=== PATIENT | male | born 1950 | race Caucasian/White ===

== ENCOUNTER → 2017-11-27 | Outpatient (CLI) | payer OTHER ==
[~2017-11-27] MED LIST: GADOBUTROL 10 ML VIAL IVP ONE
== END ==
LOC: FIMAGING 16:19
PROVIDERS: ATTEND Physician Assistant
DX: K86.9 Disease of pancreas, unspecified (principal)
CPT/HCPCS: 74183; A9585

== ENCOUNTER 2017-11-29 19:23 | Emergency (ER) | payer OTHER ==
[2017-11-29] MEDS ORDERED: NS 1,000 ML IV ONE (19:44)
--- NOTE | 2017-11-29 19:45 | EDPHY ---
H & P Time Seen by Provider: 11/29/17 19:43 HPI/ROS: Chief complaint. Abdominal pain HPI. 67-year-old male presents emergency department with abdominal pain. Patient has a recent diagnosis pancreatic cancer that would presented about week and half ago is painless jaundice. Patient had an MRI of his abdomen November 27 which showed a mass on the pancreas head is causing biliary obstruction. He had an ERCP today and gallbladder stent and then he has had worsening abdominal pain. Pain is in the epigastrium is described as aching and radiates through to his back. However the patient tells me after he got here and walk from the parking lot to the emergency department the pain went from about 8/10 to about 3/10. He is feeling better. He would prefer no laboratory workup and would like to go home. He has close follow-up with his teen for further working up his pancreatic cancer. No vomiting or diarrhea or fever today ROS Constitutional. no fever/chills, no weakness Eyes. no problems with vision ENT. no sore throat, no nasal drainage Cardiovascular. no chest pain Respiratory. no shortness of breath, no cough Abdominal. Upper abdominal pain radiating through to his back . no problems urinating MS. no calf pain/swelling, no neck/back pain, no joint pain Skin. no rash Lymph. no swollen glands Neuro. no headache, no dizziness, no difficulty walking or with speech Past Medical/Surgical History: Jaundice and biliary stent and diagnosis of pancreatic cancer Social History: , nonsmoker, no alcohol Smoking Status: Never smoked Physical Exam: General Appearance: Alert well-developed male mild distress vital signs are stable Eyes: Pupils equal and round no pallor or injection. ENT, Mouth: Mucous membranes are moist. Respiratory: There are no retractions, lungs are clear to auscultation. Cardiovascular: Regular rate and rhythm. Gastrointestinal: Abdomen is soft with mild tenderness in the epigastrium. No masses. No organomegaly Neurological: Awake and alert, sensory and motor exams grossly normal. Skin: Warm and dry, no rashes. Musculoskeletal: Neck is supple nontender. Extremities symmetrical, full range of motion. Psychiatric: Patient is oriented X 3, there is no agitation. Constitutional: Initial Vital Signs Temperature (C) 37 C 11/29/17 19:27 Heart Rate 67 11/29/17 19:27 Respiratory Rate 16 03/29/18 19:27 Blood Pressure 164/94 H 11/29/17 19:27 O2 Sat (%) 96 11/29/17 19:27 O2 Delivery Mode Room Air Allergies/Adverse Reactions: No Known Allergies Allergy (Unverified 11/14/13 13:13) Home Medications: Medication Instructions Recorded NK [No Known Home Meds] 11/29/17 Medical Decision Making ED Course/Re-evaluation: Patient is feeling better and would prefer no lab work. Patient and I discussed having some pain medication and nausea medication tonight. He will follow up with his regular physicians tomorrow. He expresses understanding and agreement Differential Diagnosis: Likely the patient has pancreatitis after having an ERCP and biliary stent placed. His symptoms are improving tonight however Departure - Departure Disposition: Home, Routine, Self-Care Clinical Impression: Abdominal pain Qualifiers: Abdominal location: epigastric Qualified Code(s): R10.13 - Epigastric pain Condition: Good Instructions: Pancreatitis (ED) Additional Instructions: Frequent, small sips fluids. Gradual diet advancement if it does not make your abdomen hurt more. Percocet using 1 pill every 4-6 hours as needed for pain Zofran 1 pill every 4 hr as needed For nausea and vomiting Return for worsening symptoms. Follow up with Dr. Jennings or your care team at [facility] tomorrow if not continuing to improve Referrals: Chacho Jennings MD [Primary Care Provider] - As per Instructions
[2017-11-29] MEDS ORDERED: ONDANSETRON 4MG PREPACK#2 BTL TAKEHOME ONE (20:17)
[2017-11-29] MEDS ORDERED: OXYCODONE/APAP 5/325MG PREPACK#4 BTL TAKEHOME ONE (20:17)
[2017-11-29 20:40] VITALS: BP 149/105
== END 2017-11-29 20:44 | disposition home or self-care (01) ==
DX: R10.13 Epigastric pain (principal); Z85.07 Personal history of malignant neoplasm of pancreas

== ENCOUNTER → 2018-09-10 | Outpatient (CLI) | payer OTHER ==
[~2018-09-10] MED LIST changes: -GADOBUTROL 10 ML VIAL IVP ONE; +IOPAMIDOL (ISOVUE 370) 100 ML BTL IV ONE
== END ==
LOC: FIMAGING 12:54
PROVIDERS: ATTEND Internal Medicine Hematology & Oncology
DX: Z45.2 Encounter for adjustment and management of vascular access device (principal); C25.0 Malignant neoplasm of head of pancreas
CPT/HCPCS: 76000; J1642; Q9967